=== PATIENT | male | born 1965 | race African-American/Black ===

== ENCOUNTER 2018-04-07 22:15 | Inpatient (IN) | payer BC ==
[2018-04-07] MEDS ORDERED: Pantoprazole 80 MG in Sodium Chloride 0.9% 100 ML IVP SCH (23:00)
[2018-04-07 23:05] LABS: #Basophils 0.1 thou/uL (0.0-0.2); #Lymphocytes 3.1 thou/uL (1.20-3.40); #Monocytes 0.9 thou/uL (0.11-0.59); #Neutrophils 8.1 thou/uL (1.40-6.50); %Basophils 0.8 % (0.0-1.0); %Eosinophils 0.4 % (0.0-10.0); %Lymphocytes 25.2 % (21.0-51.0); %Monocytes 7.1 % (0.0-10.0); %Neutrophils 66.6 % (42.0-75.0); Hemoglobin 11.6 g/dL (14.0-18.0); Mean Corpuscular HGB CONC 32.6 g/dL (32.0-36.0); Mean Corpuscular Hemoglobin 29.5 pg (27.0-31.0); Mean Corpuscular Volume 90.6 fL (78.0-98.0); Mean Platelet Volume 7.3 fL (7.4-10.4); Platelet Count 255 thou/uL (130-400); RBC Distribution Width 12.1 % (11.5-14.5); Red Blood Cell (RBC) Count 3.93 mill/uL (4.70-6.10); White Blood Cell (WBC) Count 12.2 thou/uL (4.8-10.8)
[2018-04-07 23:13] LABS: PTT 25.1 SEC (22.9-36.1); Prothrombin Time 13.6 SEC (12.0-14.7)
[2018-04-08 06:17] LABS: Hemoglobin 10.9 g/dL (14.0-18.0)
--- NOTE | 2018-04-08 18:29 | HP ---
PRIMARY CARE PROVIDER: [facility]. CHIEF COMPLAINT: Blood per rectum and dizziness. HISTORY OF PRESENT ILLNESS: This is a 52-year-old male, who was transferred to [facility] Emergency Department and transferred from [place], [place], after the patient presented complaining of dark red blood per rectum. The patient had noticed painless bleeding over the last 24 hours apparently having up to 10 bowel movements. The patient states he had a syncopal event in the bathroom briefly but came to and felt dizzy. The patient denies any prior similar incidence, chronic anticoagulation but does states he takes baby aspirin once a day. The patient states he was having abdominal cramping and took Mylanta the night prior to night prior to this episode and then developed multiple bowel movements. The patient denies any prior history of GI disease or evaluations for same. The patient was evaluated in the emergency department and received IV fluids in addition to Protonix infusion. Initial hemoglobin was noted at 11.6. PAST MEDICAL HISTORY: 1. Hypertension. 2. Hyperlipidemia. PAST SURGICAL HISTORY: Reviewed and negative. CURRENT MEDICATIONS: 1. Lisinopril 2.5 mg one tablet p.o. daily. 2. Carvedilol 3.125 mg p.o. daily. 3. Lasix 40 mg p.o. daily. 4. Potassium chloride 10 mEq p.o. daily. 5. Simvastatin 20 mg p.o. daily. 6. Enteric-coated aspirin 81 mg p.o. daily. ALLERGIES: NO KNOWN DRUG ALLERGIES. FAMILY HISTORY: Positive for hypertension. SOCIAL HISTORY: No current tobacco or illicit drug use. Occasional alcohol use. Works as a overhauler bus truck. and accompanied by his in the hospital. Resides in the [place], [place] area. REVIEW OF SYSTEMS: CONSTITUTIONAL: Negative for weight loss or gain, ability to conduct usual activities. SKIN: Negative for rash, itching. EYES: Negative for double vision, pain. ENT/MOUTH: Negative for nose bleeding, neck stiffness, pain, tenderness. CARDIOVASCULAR: Negative for palpitations, dyspnea on exertion, orthopnea. RESPIRATORY: Negative for shortness of breath, wheezing, cough, hemoptysis, fever or night sweats. GASTROINTESTINAL: Negative for poor appetite, abdominal pain, heartburn, nausea, vomiting, constipation, or diarrhea. GENITOURINARY: Negative for urgency, frequency, dysuria, nocturia. MUSCULOSKELETAL: Negative for pain, swelling. NEUROLOGIC/PSYCHIATRIC: Negative for anxiety, depression. ALLERGY/IMMUNOLOGIC: Negative for skin rash, bleeding tendency. Otherwise, negative except as stated per HPI. PHYSICAL EXAMINATION: VITAL SIGNS: Blood pressure 103/59, pulse 52, respiratory rate 16, temperature 98.5 degrees Fahrenheit, and O2 saturation 96% on room air. GENERAL APPEARANCE: This is a 52-year-old male, alert, and oriented x3, pleasant, responsive, in no acute distress. HEENT: Pupils are equal, round, reactive to light and accommodation. Extraocular muscles are intact. No scleral icterus. No conjunctival injection. Nares patent. OP is clear. Teeth in good repair. NECK: Supple. No cervical adenopathy. No thyromegaly. No carotid bruits. No JVD appreciated. Cervical spine with full active and passive range of motion. No meningeal signs noted. CHEST: Lungs are clear to auscultation bilaterally. CARDIOVASCULAR EXAM: S1 and S2 without noted murmur, rub, or gallop. ABDOMEN: Rounded, soft, nontender, and nondistended. Bowel sounds are positive in all four quadrants. There is no hepatosplenomegaly. No abdominal bruits. No rebound or guarding appreciated. EXTREMITIES: Warm and dry with fair turgor. No clubbing, cyanosis, or asymmetric edema appreciated. Pulses are palpable distally at the dorsalis pedis, posterior tibial, and popliteal arteries bilaterally. Capillary refill less than 2 seconds. NEUROLOGIC: Cranial nerves 2 through 12 are grossly intact. No focal or lateralizing signs appreciated. PERTINENT LAB AND X-RAY FINDINGS: CBC showed a hemoglobin ranging between 10.9 to 11.6. PT 13.6, INR 1.0, PTT 25.1. Sodium is 139, potassium 4.5, chloride 103, CO2 of 29, BUN 24, creatinine 1.63, estimated GFR 54. LFTs within normal limits. Troponin I negative x1. EKG dated 04/07/2018 by my interpretation shows sinus mechanism with heart rates in the 80s. Normal R-wave progression noted in precordial leads. Normal axis. T-wave inversion in leads V3 through V6. Portable chest x-ray dated 04/07/2018 showed no acute cardiopulmonary process. ASSESSMENT AND PLAN: 1. Acute GI bleed. The patient received IV fluids in addition to Protonix. Recommend endoscopy. The patient currently stating he would like to pursue workup in the [place] area closer to his home due to family constraints. 2. Symptomatic anemia secondarily to #1, see #1 above. 3. Hypertension. Resume home antihypertensive regimen after endoscopy and workup for GI bleed completed. 4. Acute kidney injury. The patient received intravenous fluids in the emergency department. Recommend holding lisinopril x48 hours. 5. Code status is full. Surrogate medical decision maker is the patient's spouse. DISPOSITION: The patient and family requesting to leave against medical advice and pursue further workup in the [place], [place] area nearer to home. Risks of travel reinforced. Recommend endoscopy for further evaluation of GI bleed. Job ID: [id number]
== END 2018-04-08 11:59 | disposition left against medical advice (07) | DRG 378 ==
LOC: ERS 22:15 → ERHOLD 22:56
PROVIDERS: ADMIT Hospitalist; ATTEND Hospitalist
DX: K92.2 Gastrointestinal hemorrhage, unspecified (principal); N17.9 Acute kidney failure, unspecified; I10 Essential (primary) hypertension; E78.5 Hyperlipidemia, unspecified; D64.9 Anemia, unspecified; Z79.899 Other long term (current) drug therapy
CPT/HCPCS: 36415; 85018; 85025; 85610; 85730; 86850; 86900; 86901; 96365; 96366; C9113; J7050